=== PATIENT | female | born 1970 | race African-American/Black ===

== ENCOUNTER 2016-11-30 18:14 | Emergency (ER) | payer BC ==
[~2016-11-30] VITALS: Ht 162.6 cm; Wt 95.3 kg
[~2016-11-30 18:14] MED LIST: BENTYL10 MG ORAL; GUAIFENESIN1200 MG PO; IBUPROFEN400 MG ORAL; NKM; PROMETHAZINE-D118 ML ORAL; SIMETHICONE80 MG ORAL
[2016-11-30] MEDS ORDERED: Mylanta II UD 30ml ORAL ONE (18:45)
[2016-11-30] MEDS ORDERED: Dicyclomine HCl 10mg/5ml oral soln ORAL ONE (18:45)
[2016-11-30] MEDS ORDERED: Lidocaine 2% Visc 15ml soln ORAL ONE (18:45)
[2016-11-30] MEDS ORDERED: OMEPRAZOLE20 M2 ORAL (19:17)
[2016-11-30] MEDS ORDERED: PEPCID40 MG PO (19:17)
[2016-11-30 19:32] VITALS: BP_SYST 110; BP_SYST 118; BP_DIAS 74; BP_DIAS 78
--- NOTE | 2016-11-30 19:41 | Emergency Room Report ---
History of Present Illness General Chief Complaint: Chest Pain Source: Patient Present Illness HPI The patient is a 46-year-old female with a history of GERD presenting for mid chest pain which began yesterday. The patient states the pain is a burning 6/ 10 sensation and does not radiate from the mid chest. Pain worse with swallowing. The patient has not used any medications for this yet. The patient states that she does not take any medications for GERD. The patient states that she has been drinking a lot of alcohol recently. The patient denies any other symptoms including shortness of breath, diaphoresis, numbness or tingling, swelling, abdominal pain, back pain, headache, blurred vision, dizziness Allergies: Coded Allergies: No Known Allergies (Unverified , 04/19/16) Patient History Past Medical History: see triage record Pertinent Family History: none Last Menstrual Period: 11/14/16 Reviewed Nursing Documentation: PMH: Agreed, PSxH: Agreed Nursing Documentation-PMH Past Medical History: No History, Except For Hx Gastrointestinal Problems: Yes - GERD Review of Systems All Other Systems: negative except mentioned in HPI Physical Exam Vital Signs Date Time Temp Pulse Resp B/P Pulse Ox O2 Delivery O2 Flow Rate FiO2 11/30/16 18:19 97.9 76 16 110/74 100 Room Air Sp02 EP Interpretation: reviewed General Appearance: no apparent distress, alert, GCS 15, non-toxic Head: normocephalic, atraumatic Eyes: bilateral eye PERRL, bilateral eye normal inspection ENT: hearing grossly normal, normal pharynx, no angioedema, normal voice Neck: full range of motion, supple/symm/no masses Respiratory: chest non-tender, lungs clear, normal breath sounds, speaking full sentences Cardiovascular #1: regular rate, rhythm, no edema Gastrointestinal: normal bowel sounds, non tender, soft, non-distended, no guarding, no rebound Genitourinary: normal inspection, no CVA tenderness Musculoskeletal: back normal, gait/station normal, normal range of motion, non- tender Neurologic: alert, oriented x3, responsive, motor strength/tone normal, sensory intact, speech normal Psychiatric: judgement/insight normal, memory normal, mood/affect normal, no suicidal/homicidal ideation Reflexes: 3+ bicep (R), 3+ bicep (L), 3+ tricep (R), 3+ tricep (L), 3+ knee (R) , 3+ knee (L) Skin: normal color, no rash, warm/dry, well hydrated Lymphatic: no adenopathy Medical Decision Making PA Attestation Dr. Thomas is my supervising physician. Patient management was discussed with my supervising physician Diagnostic Impression: Primary Impression: GERD (gastroesophageal reflux disease) ER Course The patient is a 46-year-old female with a history of GERD presenting for mid chest pain Differential diagnosis considered: GERD, ACS, anxiety, PNA PE: vitals WNL. NAD HEENT exam unremarkable Abdomen is soft and nontender. Normal bowel sounds Heart RRR. Lungs clear to auscultation bilaterally EKG unremarkable The patient was given a GI cocktail and is feeling better. Pain has ceased. The patient will be discharged home with a prescription for Pepcid and omeprazole. ER precautions are given and the patient will followup with PMD EKG Diagnostic Results Rate: normal - 77 Rhythm: NSR ST Segments: no acute changes ASA given to the pt in ED: No PA Scribe Text EKG was reviewed and read with my supervising physician. No acute ST segment changes are seen. Normal rate and rhythm. No acute changes. Last Vital Signs Date Time Temp Pulse Resp B/P Pulse Ox O2 Delivery O2 Flow Rate FiO2 11/30/16 19:32 97.9 82 14 118/78 100 Room Air Status: improved Disposition: HOME, SELF-CARE Condition: Improved Scripts Omeprazole (OMEPRAZOLE) 20 Mg Capsule. 20 MG ORAL DAILY, #30 CAP Prov: NATANAEL KINGSLEY 11/30/16 Famotidine (PEPCID) 40 Mg Tablet 40 MG PO DAILY, #7 TAB 0 Refills Prov: NATANAEL KINGSLEY 11/30/16 Patient Instructions: Indigestion Additional Instructions: I discussed my findings with the patient. All questions and concerns have been answered. Treatment and medication compliance have been addressed. I advised the patient that they need to follow up with PMD in 3-5 days. Return to ED if symptoms worsen, new symptoms arise, or if needed for any reason. Patient verbalized understanding of discharge instructions. NATANAEL KINGSLEY Nov 30, 2016 19:41
--- NOTE | 2016-12-02 18:53 | Cardiology Report ---
APPROVED REPORT EKG Measurement Heart [id number] Normal sinus rhythm Normal ECG
== END 2016-11-30 19:33 | disposition home or self-care (01) ==
LOC: EMR 18:42
DX: K21.9 Gastro-esophageal reflux disease without esophagitis (principal)
CPT/HCPCS: 93005; 99284

== ENCOUNTER → 2017-01-30 | Day surgery (SDC) | payer BC ==
[2017-01-30] VITALS (9 sets, daily range): BP systolic 112–129; BP diastolic 73–83
[~2017-01-30] VITALS: Ht 162.6 cm; Wt 97.1 kg
[~2017-01-30] MED LIST changes: +Alfentanil 2ml Inj ONE; +Atropine Inj 1mg/10ml Syr IV PRN; +Bupivacaine w/Epi 0.25% 30ml Vial INJ ONE; +D5 1/2NS 1,000 ML IV SCH; +Dexamethasone 4mg/ml vial ONE; +DiphenhydrAMINE 50mg/ml Inj IVP PRN; +EPINEPHrine 1mg/1ml Amp ONE; +HYDROmorphone 1mg/ml Carpuject SUBQ PRN; +Hydromorphone 0.5mg/0.5ml inj IVP PRN; +Ketorolac 30mg Inj IV PRN; +Ketorolac 60mg Inj IV PRN; +LORazepam Inj 2mg/ml 1ml IV PRN; +LR 1000ml 1,000 ML IVLG SCH; +LR 1000ml ONE; +Lidocaine 1% MPF 10mg/ml 5ml ONE; +Meperidine 25mg/ml Inj IV PRN; +Metoclopramide 10mg/2ml Inj IVP PRN; +Midazolam 2mg/2ml Inj IVP PRN; +Midazolam 2mg/2ml Inj ONE; +NS Irrig 4000ml IRRIG ONE; +Norco 5mg/325mg tab ORAL PRN; +Norco 7.5mg/325mg tab ORAL PRN; +OMEPRAZOLE20 M2 ORAL; +Oxycodone/Acetaminophen 5-325 ORAL PRN; +PEPCID40 MG PO; +Propofol 10mg/ml 20ml IV ONE; +Ropivacaine 5mg/ml Vial 20ml INJ ONE; +STERILE WATER FOR INJECTION INJ ONE; +Tylenol #3 tab (300mg/30mg) ORAL PRN; +ceFAZolin 1gm/50ml Premix 50 ML IV ONE; +celeBREX 200mg Cap **SURGERY PATIENTS ONLY ORAL ONE; +fentaNYL 100 mcg/2 mL IV PRN; +oxyCONTIN 20mg tab ORAL ONE
--- NOTE | 2017-01-30 06:14 | Anethesia Preoperative Eval ---
Anesthesia Pre-op PMH/ROS General Date of Evaluation: Jan 30, 2017 Time of Evaluation: 07:12 Anesthesiologist: Alma ASA Score: ASA 2 Mallampati Score Class I : Soft palate, uvula, fauces, pillars visible Class II: Soft palate, uvula, fauces visible Class III: Soft palate, base of uvula visible Class IV: Only hard plate visible Mallampati Classification: Class II Surgeon: Jeremiah Diagnosis: R Shoulder Pain Surgical Procedure: R Shoulder Arthroscopy Anesthesia History: none Family History: no anesthesia problems Allergies: Coded Allergies: No Known Allergies (Unverified , 04/19/16) Medications: see eMAR Past Medical History Gastrointestinal/Genitourinary: Reports: GERD Other: obesity - BMI 37 PSxH Narrative: TL Anesthesia Pre-op Phys. Exam Physician Exam Last Vital Signs Date Time Temp Pulse Resp B/P Pulse Ox O2 Delivery O2 Flow Rate FiO2 01/30/17 06:06 98.7 79 18 114/77 99 Room Air Constitutional: NAD Neurologic: CN 2-12 intact Cardiovascular: RRR Respiratory: CTA Gastrointestinal: S/NT/ND Airway Exam Mallampati Score: Class II MO: full ROM: limited Teeth: missing, intact Anesthesia Pre-op A/P Pre-Antibiotics Dru Gram Ancef IV Given Within 1 Hr of Incision: Yes Time Given: 07:34 Js Marquez MD Jan 30, 2017 06:14
--- NOTE | 2017-01-30 07:19 | Pre-Procedure Note/Attestation ---
Pre-Procedure Note/Attestation Complete Prior to Procedure Planned Procedure: right Procedure Narrative: shoulder arthroscopy, rc repair Indications for Procedure Pre-Operative Diagnosis: right shoulder rct Attestation I attest that I discussed the nature of the procedure; its benefits; risks and complications; and alternatives (and the risks and benefits of such alternatives ), prior to the procedure, with the patient (or the patient's legal shipping services sales representative). I attest that, if there was a reasonable possibility of needing a blood transfusion, the patient (or the patient's legal shipping services sales representative) was given the [facility] standardized written summary, pursuant to the Deonte Chata Blood Safety Act ([place] Health and Safety Code # 1645, as amended). I attest that I re-evaluated the patient just prior to the surgery and that there has been no change in the patient's H&P, except as documented below: LEYLA BASS Jan 30, 2017 07:19
--- NOTE | 2017-01-30 07:20 | Operative Note - PDOC ---
Operative Note Operative Note Pre-op Diagnosis: right shoulder rct Procedure: see op report Post-op Diagnosis: same as pre-op plus Operative Findings: consistent w/pre-op dx studies Anesthesia: MAC Specimen: none Complications: none Condition: stable Estimated Blood Loss: none Implant(s) used?: Yes LEYLA BASS Jan 30, 2017 07:20
--- NOTE | 2017-01-30 08:19 | Immediate Post-Op Evaluation ---
Immediate Post-Op Evalulation Immediate Post-Op Evalulation Procedure: R Shoulder Arthroscopy Date of Evaluation: Jan 30, 2017 Time of Evaluation: 09:17 IV Fluids: 1000 LR Blood Products: 0 Estimated Blood Loss: 10 Urinary Output: 0 Blood Pressure Systolic: 121 Blood Pressure Diastolic: 83 Pulse Rate: 84 Respiratory Rate: 16 O2 Sat by Pulse Oximetry: 100 Temperature (Fahrenheit): 97 Pain Score (1-10): 1 Nausea: No Vomiting: No Complications 0 Patient Status: awake, reacts, patent, extubated, none Hydration Status: adequate Dru Gram Ancef IV Given Within 1 Hr of Incision: Yes Time Given: 07:34 Js Marquez MD Jan 30, 2017 08:19
--- NOTE | 2017-01-30 08:20 | 48 Hour Post Anesthesia Eval ---
Post Anesthesia Evaluation Procedure: R Shoulder Arthroscopy Date of Evaluation: Jan 30, 2017 Time of Evaluation: 11:23 Blood Pressure Systolic: 132 0: 84 Pulse Rate: 78 Respiratory Rate: 18 Temperature (Fahrenheit): 98.3 O2 Sat by Pulse Oximetry: 100 Airway: patent Nausea: No Vomiting: No Pain Intensity: 1 Hydration Status: adequate Cardiopulmonary Status: Stable Mental Status/LOC: patient returned to baseline Follow-up Care/Observations: 0 Post-Anesthesia Complications: 0 Follow-up care needed: ready to discharge Js Marquez MD Jan 30, 2017 08:20
--- NOTE | 2017-01-30 21:17 | Operative Note - Dictated ---
DATE OF OPERATION: 01/30/2017 PREOPERATIVE DIAGNOSIS: Right shoulder full thickness rotator cuff tear. POSTOPERATIVE DIAGNOSES: 1. Right shoulder full thickness rotator cuff tear. 2. Partial tear of biceps tendon. 3. Impingement syndrome of subacromial bursitis. PROCEDURES: 1. Right shoulder arthroscopy with extensive intraarticular debridement. 2. Right shoulder arthroscopic rotator cuff repair. 3. Right shoulder subacromial decompression bursectomy. SURGEON: Davi Daniels M.D. ANESTHESIA: Interscalene with general. INDICATION FOR PROCEDURE: The patient is a pleasant female, who has had progressive shoulder pain. She had MRI, which showed evidence of full-thickness rotator cuff tear. Given that she had failed conservative treatment and continued pain, she elected to undergo right shoulder arthroscopy and rotator cuff repair. Risks, limitations, expectations, and complications related to procedure were discussed in detail. All questions were addressed. DESCRIPTION OF PROCEDURE: An informed consent was obtained. The patient was taken to the operative room and placed under interscalene general anesthesia. The patient was then carefully placed in beach-chair position. Right shoulder was prepped and draped in a sterile manner. The portal sites were injected with 0.25% Marcaine with epinephrine. Inferolateral stab incision was then made. Trocar was introduced into the glenohumeral joint. There is some fraying of the biceps tendon. No significant labral tear. No chondral damage. Subscap appeared to be intact. The under surface of the rotator cuff showed a full-thickness tear. At this point, the camera was repositioned in the subacromial space and complete bursectomy was performed. Under surface of the acromion was identified and acromioplasty was started from the medial and completed from posterior to anterior. Once that was done, the area of the rotator cuff tear was well visualized. A soft tissue was debrided off the greater tuberosity and two mattress sutures were then placed along with a lateral row anchor to synch down the footprint. Once that was done, it was noted that the shoulder moved as a unit. The camera was repositioned in the subacromial space and brought into glenohumeral joint. Footprint was recreated. At this point, the instruments were removed. Portal sites were closed with 3-0 Monocryl sutures. Steri-Strips and a sterile dressing were applied. The patient was awoken and taken to recovery room with stable vital signs. ESTIMATED BLOOD LOSS: None. COMPLICATIONS: None. SPECIMENS: None. IMPLANTS: Includes two [employer] rotator cuff anchors. Davi Daniels M.D. DR: SHAYNA JOB#: [id number] CC:
== END | disposition home or self-care (01) ==
LOC: SUR 05:20
DX: M75.101 Unspecified rotator cuff tear or rupture of right shoulder, not specified as traumatic (principal); K21.9 Gastro-esophageal reflux disease without esophagitis; E66.9 Obesity, unspecified; Z68.37 Body mass index [BMI] 37.0-37.9, adult
CPT/HCPCS: 29826; 29827; 81025; C1713; J0171; J1100; J2250; J2405; J2704; J2795; J3490; J7120; 94003; 94150; A4216

== ENCOUNTER → 2017-05-08 | Outpatient (CLI) | payer BC ==
[~2017-05-08] MED LIST changes: -Alfentanil 2ml Inj ONE; -Atropine Inj 1mg/10ml Syr IV PRN; -Bupivacaine w/Epi 0.25% 30ml Vial INJ ONE; -D5 1/2NS 1,000 ML IV SCH; -Dexamethasone 4mg/ml vial ONE; -DiphenhydrAMINE 50mg/ml Inj IVP PRN; -EPINEPHrine 1mg/1ml Amp ONE; -HYDROmorphone 1mg/ml Carpuject SUBQ PRN; -Hydromorphone 0.5mg/0.5ml inj IVP PRN; -Ketorolac 30mg Inj IV PRN; -Ketorolac 60mg Inj IV PRN; -LORazepam Inj 2mg/ml 1ml IV PRN; -LR 1000ml 1,000 ML IVLG SCH; -LR 1000ml ONE; -Lidocaine 1% MPF 10mg/ml 5ml ONE; -Meperidine 25mg/ml Inj IV PRN; -Metoclopramide 10mg/2ml Inj IVP PRN; -Midazolam 2mg/2ml Inj IVP PRN; -Midazolam 2mg/2ml Inj ONE; -NS Irrig 4000ml IRRIG ONE; -Norco 5mg/325mg tab ORAL PRN; -Norco 7.5mg/325mg tab ORAL PRN; -Oxycodone/Acetaminophen 5-325 ORAL PRN; -Propofol 10mg/ml 20ml IV ONE; -Ropivacaine 5mg/ml Vial 20ml INJ ONE; -STERILE WATER FOR INJECTION INJ ONE; -Tylenol #3 tab (300mg/30mg) ORAL PRN; -ceFAZolin 1gm/50ml Premix 50 ML IV ONE; -celeBREX 200mg Cap **SURGERY PATIENTS ONLY ORAL ONE; -fentaNYL 100 mcg/2 mL IV PRN; -oxyCONTIN 20mg tab ORAL ONE
--- NOTE | 2017-05-08 11:53 | Diagnostic Imaging Report ---
Indication: Neck pain Technique: 3 views of the cervical spine Comparison: none Findings: Bony alignment is normal. Vertebral body heights are preserved. Disc spaces are preserved. No prevertebral soft tissue swelling. Impression: Negative
== END | disposition home or self-care (01) ==
LOC: RAD 09:54
DX: M54.2 Cervicalgia (principal)
CPT/HCPCS: 72040